=== PATIENT | female | born 1985 | race Caucasian/White ===

== ENCOUNTER 2017-02-26 20:43 | Emergency (ER) | payer OTHER ==
[2017-02-26 20:57] VITALS: RESP 16; TEMP 98.1
[2017-02-26] MEDS ORDERED: IBUPROFEN 800 MG TAB PO ONE (21:09)
[2017-02-26] MEDS ORDERED: IBUPROFEN 600 MG TAB PO ONE (21:11)
--- NOTE | 2017-02-26 21:13 | EDPHY ---
H & P Time Seen by Provider: 02/26/17 20:57 HPI/ROS: HPI Right ear pain. 32-year-old female by private vehicle with her father. This patient complains of right ear pain started this afternoon. She reports that it has worsened some over the last several hours. She feels the pain is exacerbated by opening and closing her jaw on feel some pain in her temporal mandibular joint area. No history of swimming or scuba diving. No air travel or other barotrauma. No direct trauma to the year. No other complaints. ROS: Constitutional: No fever, no chills. No weakness. Eyes: No discharge. No changes in vision. ENT: No sore throat. No nasal congestion or rhinorrhea. As above. Respiratory: No cough. No shortness of breath. Musculoskeletal: No back pain. No neck pain. As above. Skin: No rashes. Neurological: No headache. No focal weakness or altered sensation. Past medical history: Denies. Social history: Nonsmoker. Here with her father. Works in a pediatric office. Physical Exam: General Appearance: Alert, no distress. This patient is responding to questions appropriately and in full sentences. This patient appears well- hydrated and well-nourished. Eyes: Pupils equal and round no pallor or injection. No lid edema, erythema or injection. ENT, Mouth: Mucous membranes are moist. The pharyngeal tissues are unremarkable. No edema or swelling. No asymmetry suggestive of abscess. No erythema or exudates. The left external auditory canal and tympanic membrane are clear. Landmarks are easily identifiable. The right tympanic membrane is mildly inflamed but landmarks are clearly identifiable. The external auditory canal on the right is patent and unremarkable. She has mild tenderness on palpation of the TMJ joint when she opens and closes her jaw. She is able to open her mouth fully without significant pain. Neurological: Motor sensory function is grossly intact. Cranial nerves are normal. Gait is normal. Skin: Warm and dry, no rashes. Musculoskeletal: Neck is supple and nontender. No cervical or submental lymphadenopathy. Extremities are symmetrical. All joints range without pain or impingement. Psychiatric: No agitation. No depression. Database: EKG: Imaging: Procedures: Emergency department course: Patient given 600 mg of ibuprofen orally in the emergency department. I explained that I felt his premature for antibiotic administration at this time. Vital signs have been reviewed and are normal. She is afebrile. Plan will be to write her prescription for amoxicillin. Because it is a holiday weekend if her pain worsens she can fill this prescription and start this treatment. She is to follow up with the primary care physician on Monday for re- evaluation. Return to emergency department precautions were discussed with her. All of her questions were answered. She was discharged in good condition. Differential Diagnosis: The differential diagnosis on this patient includes but is not limited to right otalgia, otitis media, otitis externa, TMJ syndrome. This represents a partial list of diagnoses considered. These considerations are based on history, physical exam, past history, reassessment and diagnostic testing. Smoking Status: Never smoked Constitutional: Initial Vital Signs Temperature (C) 36.7 C 02/26/17 20:55 Heart Rate 81 02/26/17 20:55 Respiratory Rate 16 02/26/17 20:55 Blood Pressure 141/103 H 02/26/17 20:55 O2 Sat (%) 96 02/26/17 20:55 O2 Delivery Mode Room Air Allergies/Adverse Reactions: No Known Allergies Allergy (Verified 02/26/17 20:54) Home Medications: Medication Instructions Recorded Sertaline Unk Dose 07/10/15 Amoxicillin Trihydrate 500 mg PO Q6 #28 cap 02/26/17 [Amoxicillin 500mg cap] Bcp 02/26/17 Medical Decision Making - Data Points Medications Given: Discontinued Medications Ibuprofen (Motrin) 600 mg PO EDNOW ONE Stop: 02/26/17 21:10 Last Admin: 02/26/17 21:12 Dose: 600 mg Departure - Departure Disposition: Home, Routine, Self-Care Clinical Impression: Otalgia, right ear, Arthralgia of right temporomandibular joint Condition: Good Instructions: Earache (ED) Additional Instructions: Read and follow provided instructions. Follow-up with your primary care physician in 1-2 days for re-evaluation as discussed. Ibuprofen dosin mg every 6 hours with meals for the next 3 days only. Fill amoxicillin prescription if your right ear pain worsens or if you develop a fever. Return to the emergency department for worsening pain, fever, neck pain or other serious concerns Referrals: NONE *PRIMARY CARE P,. [Primary Care Provider] - As per Instructions Prescriptions: Amoxicillin Trihydrate [Amoxicillin 500mg cap] 500 mg PO Q6 #28 cap
[2017-02-26 21:23] VITALS: BP 128/93; PULSE 78; O2SAT 95
== END 2017-02-26 21:22 | disposition home or self-care (01) ==
LOC: CED 20:43
DX: H92.01 Otalgia, right ear (principal); M26.621 Arthralgia of right temporomandibular joint